=== PATIENT | male | born 1960 | race Caucasian/White ===

== ENCOUNTER 2022-02-05 08:34 | Inpatient (IN) | payer BC ==
[~2022-02-05 08:34] MED LIST: Famotidine 20 MG/2 ML SDV IVPUSH SCH; Famotidine 20 MG/2 ML SDV ONE; Lactated Ringers 1,000 ML IV SCH; Ropivacaine 49.25 ML, Ketorolac 30 MG, EPINEPHrine 0.5 MG, cloNIDine 80 MCG in Sodium C... INJECT SCH; Scopolamine 1.5 MG Transdermal Patch TRDERM SCH; Tranexamic Acid 1,000 MG in Sodium Chloride 0.9% 100 ML IV ONE; ceFAZolin 2 GM in Premix Bag 1 BAG IV SCH
[2022-02-05] MEDS ORDERED: Naloxone 0.4 MG/ML SDV IVPUSH PRN (09:11)
[2022-02-05] MEDS ORDERED: Morphine 2 MG/ML SYRINGE IVPUSH PRN ×2 (09:11→14:54)
[2022-02-05] MEDS ORDERED: Ondansetron 4 MG/2 ML SDV IVPUSH PRN ×2 (09:11→14:54)
[2022-02-05] MEDS ORDERED: Metoclopramide 10 MG/2 ML SDV IVPUSH PRN (09:11)
[2022-02-05] MEDS ORDERED: fentaNYL 50 MCG/ML SDV IVPUSH PRN (09:11)
[2022-02-05] MEDS ORDERED: Albuterol 0.083% 2.5 MG/3 ML Neb Soln NEB PRN (09:11)
[2022-02-05] MEDS ORDERED: HYDROmorphone 1 MG/ML Syringe IVPUSH PRN (09:11)
[2022-02-05] MEDS ORDERED: fentaNYL 100 MCG/2 ML SDV ONE ×2 (09:57→11:53)
[2022-02-05] MEDS ORDERED: Midazolam 1 MG/ML 2 ML SDV ONE (09:57)
[2022-02-05] MEDS ORDERED: Bupivacaine 0.5% 30 ML SDV ONE (10:17)
[2022-02-05] MEDS ORDERED: Lidocaine 1% 5 ML VIAL ONE (10:20)
[2022-02-05] MEDS ORDERED: Propofol 200 MG/20 ML SDV ONE (10:37)
[2022-02-05] MEDS ORDERED: ceFAZolin 2 GM Vial ONE (11:07)
[2022-02-05] MEDS ORDERED: Ondansetron 4 MG/2 ML SDV ONE (11:07)
[2022-02-05] MEDS ORDERED: Tranexamic Acid 1,000 MG/10 ML Vial ONE (11:07)
[2022-02-05] MEDS ORDERED: Dexamethasone 4 MG/ML 5 ML MDV ONE (11:07)
[2022-02-05] MEDS ORDERED: Lidocaine 2% 5 ML SDV ONE (11:07)
[2022-02-05] MEDS ORDERED: Water For Injection, Sterile 20 ML ONE ×2 (11:08→12:21)
[2022-02-05] MEDS ORDERED: ePHEDrine 50 MG/ML SDV ONE (12:21)
[2022-02-05] MEDS ORDERED: HYDROmorphone 2 MG/ML Syringe ONE (12:55)
[2022-02-05] MEDS ORDERED: diphenhydrAMINE 25 MG Cap PO PRN (14:54)
[2022-02-05] MEDS ORDERED: Sodium Chloride 0.9% 10 ML Syringe FLUSH PRN (14:54)
[2022-02-05] MEDS ORDERED: Bisacodyl 10 MG Supp RECTAL PRN (14:54)
[2022-02-05] MEDS ORDERED: Aluminum Hydroxide/Magnesium Hydroxide/Simethicone XS Susp 30 ML Cup PO PRN (14:54)
[2022-02-05] MEDS ORDERED: Sodium Chloride 0.9% 2.5 ML Syringe FLUSH PRN (14:54)
[2022-02-05] MEDS ORDERED: oxyCODONE 5 MG Tab PO PRN (14:54)
[2022-02-05] MEDS ORDERED: traMADol 50 MG Tab PO PRN (14:54)
[2022-02-05] MEDS ORDERED: Acetaminophen 325 MG Tab PO PRN (15:00)
[2022-02-05] MEDS: Ketorolac 30 MG/ML SDV IVPUSH SCH ×2 (16:15→21:09)
[2022-02-05] MEDS: ceFAZolin 2 GM in Premix Bag 1 BAG IV SCH (18:41)
[2022-02-05] MEDS: Docusate Sodium 100 MG Cap PO SCH (21:09)
[2022-02-05] MEDS: Aspirin 325 MG Tab PO SCH (21:09)
[2022-02-06] MEDS: ceFAZolin 2 GM in Premix Bag 1 BAG IV SCH (03:15)
[2022-02-06] MEDS: Ketorolac 30 MG/ML SDV IVPUSH SCH (03:17)
[2022-02-06] MEDS ORDERED: Polyethylene Glycol 3350 Powder 17 GM Packet PO SCH (09:00)
[2022-02-06] MEDS ORDERED: Famotidine 20 MG Tab PO SCH (09:00)
[2022-02-06] MEDS ORDERED: Acetaminophen 325 MG Tab PO SCH (09:15)
[2022-02-06 09:17] VITALS: BP 134/70; PULSE 94
[2022-02-06] MEDS: Aspirin 325 MG Tab PO SCH (09:20)
[2022-02-06] MEDS: Docusate Sodium 100 MG Cap PO SCH (09:20)
== END 2022-02-06 14:40 | disposition home or self-care (01) | DRG 326 ==
LOC: MW.SDS 08:34 → MW.MS 15:36 → MW.SDS 02-06 08:35 → MW.MS 02-06 08:36
PROVIDERS: ADMIT Orthopaedic Surgery; ATTEND Orthopaedic Surgery
PROC: 0SBC0ZZ Excision of Right Knee Joint, Open Approach (ICD-10-PCS; principal; 2022-02-05)
PROC: 0SRC069 Replacement of Right Knee Joint with Oxidized Zirconium on Polyethylene Synthetic Substitute, Cemented, Open Approach (ICD-10-PCS; 2022-02-05)
DX: M17.11 Unilateral primary osteoarthritis, right knee (principal); M65.9 Synovitis and tenosynovitis, unspecified; E78.5 Hyperlipidemia, unspecified; Z87.891 Personal history of nicotine dependence
CPT/HCPCS: 01402; 36415; 64450; 73560-26-RT; 73560-RT; 76942; 85014; 85018; 86850; 86900; 86901; 97116-GP; 97161-GP; 97530-GP; A9270-GY; J0131; J0171; J0690; J0735; J1100; J1170; J1885; J2250; J2405; J2704; J2795; J3010; J3490; J7120